=== PATIENT | female | born 1935 | race Two or more races ===

== ENCOUNTER 2017-07-21 13:44 | Outpatient (CLI) | payer OTHER ==
[~2017-07-21 13:44] MED LIST: AMPICILLIN TRI500 MG PO; CEFADROXIL500 MG PO; ECOTRIN81 MG PO; LEVOXYL50 MCG PO; TARKA 4/2401 BOTTLE PO; ULTRACET; [UNRECOGNIZED DRUG - OTHER]; [UNRECOGNIZED DRUG - OTHER]
== END 2017-07-21 13:50 | disposition home or self-care (01) ==
LOC: SONOGRAMA 13:44
DX: M25.512 Pain in left shoulder (principal)

== ENCOUNTER 2017-10-07 11:32 | Outpatient (CLI) | payer OTHER | END 2017-10-07 12:00 | disposition home or self-care (01) | LOC: NUCLEAR 11:32 | DX: M81.0 Age-related osteoporosis without current pathological fracture (principal) ==

== ENCOUNTER 2017-10-07 14:44 | Outpatient (CLI) | payer OTHER | END 2017-10-07 14:56 | disposition home or self-care (01) | LOC: RAD 501 14:44 | DX: M54.2 Cervicalgia (principal) ==

== ENCOUNTER → 2017-10-07 | Outpatient (CLI) | payer OTHER | END | disposition home or self-care (01) | LOC: TOM 15:13 | DX: M51.17 Intervertebral disc disorders with radiculopathy, lumbosacral region (principal) ==

== ENCOUNTER 2018-08-25 11:54 | Outpatient (CLI) | payer OTHER | END 2018-08-25 16:33 | disposition home or self-care (01) | LOC: MAMO-SONO 11:54 | DX: Z12.31 Encounter for screening mammogram for malignant neoplasm of breast (principal); Z87.898 Personal history of other specified conditions; N60.11 Diffuse cystic mastopathy of right breast; N60.12 Diffuse cystic mastopathy of left breast ==

== ENCOUNTER 2018-11-02 14:44 | Outpatient (CLI) | payer OTHER | END 2018-11-02 14:47 | disposition home or self-care (01) | LOC: SONOGRAMA 14:44 | DX: L76.32 Postprocedural hematoma of skin and subcutaneous tissue following other procedure (principal) ==

== ENCOUNTER → 2018-12-09 08:00 | Outpatient (CLI) | payer OTHER ==
[~2018-12-09] VITALS: Ht 160 cm; Wt 88.9 kg
[~2018-12-09 08:00] MED LIST changes: +BACLOFEN10 MG PO; +COZAAR100 MG PO; +DAFLONEX-XL 11300 MG PO; +HYDRALAZINE HCL25 MG PO; +PEPCID PO; +SYNTHROID50 MCG; +VIT D3 PO
== END | disposition home or self-care (01) ==
LOC: LAB 08:00 → SURG 12-12 07:00 → EDSTATUS 01-03 07:00 → SURG 01-03 07:00
DX: Z01.810 Encounter for preprocedural cardiovascular examination (principal); Z01.812 Encounter for preprocedural laboratory examination; Z01.811 Encounter for preprocedural respiratory examination; D05.11 Intraductal carcinoma in situ of right breast

== ENCOUNTER 2018-12-14 01:16 | Emergency (ER) | payer OTHER ==
[~2018-12-14] VITALS: Ht 160 cm; Wt 87.5 kg
== END 2018-12-14 13:34 | disposition home or self-care (01) ==
LOC: ER 01:16
DX: I48.91 Unspecified atrial fibrillation (principal); R00.2 Palpitations

== ENCOUNTER 2018-12-29 08:03 | Outpatient (CLI) | payer OTHER | END 2018-12-29 14:03 | disposition home or self-care (01) | LOC: TOM 08:03 | DX: C22.0 Liver cell carcinoma (principal) | CPT/HCPCS: 74177; Q9965 ==

== ENCOUNTER 2019-01-19 08:00 | Day surgery (SDC) | payer OTHER ==
[~2019-01-19] VITALS: Ht 160 cm; Wt 88.5 kg
== END 2019-01-20 08:00 | disposition home or self-care (01) ==
LOC: CIR.AMB 08:00 → O/R 13:10 → SURH 13:10 → CIR.AMB 01-20 08:00 → SURH 01-20 12:01 → O/R 01-20 12:01
DX: D05.11 Intraductal carcinoma in situ of right breast (principal); I10 Essential (primary) hypertension; K76.1 Chronic passive congestion of liver; D68.4 Acquired coagulation factor deficiency; E89.0 Postprocedural hypothyroidism

== ENCOUNTER 2019-04-20 06:57 | Outpatient (CLI) | payer OTHER | END 2019-04-20 14:23 | disposition home or self-care (01) | LOC: TOM 06:57 | DX: M54.5 Low back pain (principal) ==

== ENCOUNTER 2020-02-13 11:01 | Outpatient (CLI) | payer OTHER | END 2020-02-13 11:09 | disposition home or self-care (01) | LOC: MAMO-SONO 11:01 | PROVIDERS: ATTEND Specialist | DX: D05.11 Intraductal carcinoma in situ of right breast (principal) ==

== ENCOUNTER 2020-02-13 13:12 | Outpatient (CLI) | payer OTHER | END 2020-02-13 13:24 | disposition home or self-care (01) | LOC: MAMO-SONO 13:12 → NUCLEAR 13:12 | PROVIDERS: ATTEND Physical Medicine & Rehabilitation | DX: I73.9 Peripheral vascular disease, unspecified (principal); I87.2 Venous insufficiency (chronic) (peripheral) ==

== ENCOUNTER 2020-02-23 09:53 | Outpatient (CLI) | payer OTHER | END 2020-02-23 10:07 | disposition home or self-care (01) | LOC: NUCLEAR 09:53 | PROVIDERS: ATTEND Physical Medicine & Rehabilitation | DX: M81.0 Age-related osteoporosis without current pathological fracture (principal); I11.0 Hypertensive heart disease with heart failure; I25.10 Atherosclerotic heart disease of native coronary artery without angina pectoris; N63.10 Unspecified lump in the right breast, unspecified quadrant; E04.8 Other specified nontoxic goiter; I73.9 Peripheral vascular disease, unspecified ==

== ENCOUNTER 2020-07-25 07:52 | Outpatient (CLI) | payer OTHER | END 2020-07-25 07:58 | disposition home or self-care (01) | LOC: RAD 07:52 → MAMO-SONO 08:00 | PROVIDERS: ATTEND Physical Medicine & Rehabilitation | DX: K75.81 Nonalcoholic steatohepatitis (NASH) (principal); M54.5 Low back pain; M54.6 Pain in thoracic spine ==

== ENCOUNTER → 2020-08-20 14:22 | Outpatient (CLI) | payer OTHER | END | disposition home or self-care (01) | LOC: LAB 14:22 | PROVIDERS: ATTEND Radiology Diagnostic Radiology | DX: N20.0 Calculus of kidney (principal) ==

== ENCOUNTER 2020-08-27 08:28 | Outpatient (CLI) | payer OTHER | END 2020-08-27 08:35 | disposition home or self-care (01) | LOC: TOM 08:28 | PROVIDERS: ATTEND Internal Medicine Pulmonary Disease | DX: R22.9 Localized swelling, mass and lump, unspecified (principal) | CPT/HCPCS: 74177; Q9965 ==

== ENCOUNTER 2021-01-06 09:38 | Outpatient (CLI) | payer OTHER | END 2021-01-06 09:49 | disposition home or self-care (01) | LOC: TOM 09:38 | PROVIDERS: ATTEND Internal Medicine Hematology & Oncology | DX: C22.0 Liver cell carcinoma (principal); K57.90 Diverticulosis of intestine, part unspecified, without perforation or abscess without bleeding | CPT/HCPCS: 74177; Q9965 ==